=== PATIENT | female | born 1965 | race Caucasian/White ===

== ENCOUNTER 2019-12-11 08:23 | Day surgery (SDC) | payer MEDICAID, SELFPAY ==
[2019-12-09 13:08] LABS: Hematocrit 36.3 % (37-47); Hemoglobin 9.5 g/dL (12.0-15.0); Mean Corp Hgb Conc 26.2 g/dL (32-36); Mean Corpuscular Hgb 20.3 pg (27.0-32.0); Mean Corpuscular Volume 77.7 fL (81-99); POSITIVE MORPHOLOGY YES; Platelet Count 252 K/mm3 (150-450); Red Blood Count 4.67 M/mm3 (4.2-5.4); White Blood Count 5.9 K/mm3 (4.4-11.0)
[2019-12-09 13:40] LABS: Differential Comment SCANNED; Scan Indicated on CBC? Y/N YES- FLAGS NOTED
[2019-12-11] VITALS (7 sets, daily range): BP systolic 116–153; BP diastolic 71–81; PULSE 67–76; RESP 14–16; TEMP 36.6–36.7; O2SAT 98–100; BMI 43.0
--- NOTE | 2019-12-11 | IMM_PTH ---
PATIENT: LIO RAMOS LOC: [facility] [place] U#:[id number] AGE/SX: 54/F ROOM: RE12/11/[address]: Dr. Aleksandra Luke MD : 1965 BED: DIS: 12/11/2019 SPEC #: [id number] RECD: 12/12/19 12:45 STATUS: JOEL REQ #: [id number] YOANA: 12/11/19 00:[address]: Aleksandra Luke DEPT: IMMUNOHISTOCHEMISTRY RECD BY: Cindy Peralta ENTERED: 12/12/19 12:48 SP TYPE: IMMUNO OTHR DR: MD Angela Tomlinson, NICHOLAS Tissues: Endometrium, NOS Procedures: CD138 (initial) CD138 (add) PHYSICIAN & INSTITUTION [place] [id number] SPECIMEN INFORMATION: Tissue Source: Endometrial curettings Clinical Info: Menorrhagia Specimen Number: [id number] #1 & 2 CPT code: 30088, 70513 METHODOLOGY: Deparaffinized sections of prefer/formalin-fixed tissue or PAP/DQ stained slides are incubated with monoclonal/polyclonal antibodies/oligonucleotide probes. Localization is made via biotin free immunoperoxidase method. Appropriate controls are performed and reacted as expected. Results on target cell population are indicated in the following table: RESULTS: ANTIBODY / CLONE RESULT Block 1 CD138 (B-A38) positive, rare cells Block 2 CD138 (B-A38) positive, rare cells These tests were developed and their performance characteristics determined by [facility]. They may not have been cleared or approved by the U.S. Food and Drug Administration. The FDA has determined that such clearance or approval is not necessary. The above immunohistochemical/dualISH markers are ordered by Dr. Tillman and reviewed by the signing Pathologist. INTERPRETATION: Endometrial curettings: Rare plasma cells noted consistent with mild chronic endometritis. SJ:ximena 12/17/19
[2019-12-11 08:48] LABS: Mean Corp Hgb Conc 26.3 g/dL (32-36); Mean Corpuscular Hgb 20.2 pg (27.0-32.0); Mean Corpuscular Volume 76.9 fL (81-99); POSITIVE MORPHOLOGY YES; Platelet Count 287 K/mm3 (150-450); Red Blood Count 4.94 M/mm3 (4.2-5.4)
[2019-12-11 08:51] LABS: Internal QC Validated? YES +Cl - CLEAR BKGD; Pregnancy, Urine Negative Negative
[2019-12-11] MEDS: Acetaminophen 500 MG Tablet 1000 MG PO (09:02)
[2019-12-11] MEDS: Ketorolac 30 MG/ML Syringe IV (09:03)
[2019-12-11] MEDS: Lactated Ringers 1,000 ML 100 ML IV (09:27)
[2019-12-11 09:37] LABS: Scan Indicated on CBC? Y/N YES- FLAGS NOTED
[2019-12-11 09:38] LABS: Differential Comment SCANNED
--- NOTE | 2019-12-11 09:55 | EMB_PTH ---
PATIENT: LIO RAMOS LOC: [facility] [place] U#:[id number] AGE/SX: 54/F ROOM: RE12/11/[address]: Dr. Aleksandra Luke MD : 1965 BED: DIS: 12/11/2019 SPEC #: [id number] RECD: 12/11/19 13:02 STATUS: JOEL ERMELINDA #: [id number] YOANA: 12/11/19 09:[address]: Aleksandra Luke DEPT: SURGICAL PATHOLOGY RECD BY: Alex Rendon ENTERED: 12/11/19 13:26 SP TYPE: ENDOM BX/C REBECA DR: MD Angela Tomlinson, ALEJANDRO-C Tissues: Endometrium, NOS Procedures: Surgery Specimen Level IV HEADER OPERATION: Hysteroscopy, dilation and curettage, Mirena IUD insertion PRE-OP DIAGNOSIS: Menorrhagia, IUD insertion TISSUE SUBMITTED: Endometrial curettings MICROSCOPIC DIAGNOSIS Endometrium, curettings: Disordered proliferative endometrium to simple hyperplasia without atypia. Focal glandular breakdown. Mild chronic endometritis. Fragments of benign superficial squamous and endocervical tissue with chronic inflammation. AM:ximena 12/12/19 COMMENT Immunohistochemistry ([id number]) supports the above diagnosis. Case has been reviewed in consultation with Dr. Lopes who concurs with the above diagnosis. IDC:CRISTA MICROSCOPIC DESCRIPTION Slides are reviewed. GROSS DESCRIPTION Received in fixative is one container labeled with the patient's name and designated endometrial curettings. The specimen consists of multiple irregular fragments of ryan-pink to hemorrhagic soft tissue that in aggregate measure 5 x 3 x 0.3 cm. The entire specimen is submitted in two cassettes. / CRISTA:ximena 12/11/19 TC:3 CPT: 50127
--- NOTE | 2019-12-11 10:22 | PCM.DC.D&C ---
Discharge Diet: No Restrictions Discharge Activity: Return to Normal Activity, May Shower, May Take a Tub Bath - in 2 weeks. Return to work on:: 12/15/19 May shower in (days): 1 May resume sexual activity in: 2 weeks Lifting Restrictions: none Call your doctor if your incision/area has: Continuous Slow Oozing, Sudden Increased Bleeding, Foul Smelling Discharge Call your doctor if you observe: Using more than one pad per hour - for 2 hrs in a row Allergies/Adverse Reactions: Allergies Penicillins [PCN] Allergy (Verified 12/11/19 08:46) Hives Medications to take at Discharge Bupropion HCl [Wellbutrin Xl] 150 mg PO BID 12/04/19 Ferrous Sulfate 324 mg PO TID 12/04/19 Lisinopril [Prinivil] 5 mg PO DAILY 12/04/19 Ibuprofen [Motrin] 600 mg PO Q6H PRN #60 tab 12/11/19 The following prescriptions were given: Ibuprofen [Motrin] 600 mg PO Q6H PRN #60 tab PRN Reason: Pain Transmission Status: Pending to [facility] Primary Care Physician: Angela Rivera NP-C [Primary Care Provider] - Test Results: Test results from this visit will be discussed in further detail at your follow-up appointment, if applicable. Please Follow Up With: Aleksandra Luke MD - [phone] When: 6-8 weeks or prn
[2019-12-11] MEDS: Lubricating Jelly 60 GM Tube 30 GM TOPICAL (10:30)
--- NOTE | 2019-12-11 10:37 | PCM.OPRPT ---
Report of Operation Date of Procedure: 12/11/19 Pre-Operative Diagnosis: Menorrhagia, iron deficiency anemia from chronic blood loss. Post-Operative Diagnosis: Same Surgery/Procedure Performed:: Hysteroscopy, dilation and curettage with Mirena insertion Description of Surgical Findings:: Uterus sounded to 11 cm. Normal-appearing cervix and vagina. Normal-appearing endometrial cavity with normal proliferative appearing endometrium pocket grinder operator: None Type of Anesthesia:: MAC Anesthesiologist: Benita Rodriguez Special Medications: none Specimen's removed: Endometrial curettings Drains: none Estimated Blood Loss (mL): 10 Fluids Replaced: 600 Description of Procedure: The patient was taken to the OR where she was prepped and draped in dorsal lithotomy position. The weighted speculum was placed in the vagina and the anterior lip of the cervix was grasped with a single-tooth tenaculum. The cervix was dilated serially with Hegar dilators. The 5mm hysteroscope was placed into the uterine cavity and the above findings were noted. Bilateral tubal ostia were identified. The hysteroscope was removed. A gentle sharp curettage was done of the uterine cavity. The instruments were removed from the vagina. The Mirena IUD was inserted in the usual sterile fashion without difficulty and the was were trimmed to 2 cm. The specimen was handed off and sent to pathology. All sponge and needle counts were correct. Vaginal sweep was performed by me. The patient was awakened and taken to the recovery room in stable condition. Hysteroscopic ins: 200 cc normal saline Hysteroscopic outs:150 cc Findings: Endometrial cavity: Normal, no fibroids or polyps noted Cervix: Normal Vagina: Normal Grafts/Implants Used: Mirena IUD Lot [id number] - Complications none - Admit VTE Documentation VTE Present on Admission: No VTE Mechan Device Prophylaxis: SCD's VTE Pharm Prophylaxis ordered?: No Reason prophylaxis not ordered:: Procedure Not Indicated
[2019-12-11] MEDS: Ibuprofen 600 MG Tablet PO (11:38)
== END 2019-12-11 12:35 | disposition home or self-care (01) ==
LOC: SDC 08:24 → AC 08:24
PROVIDERS: Anesthesiology; PCP Nurse Practitioner Family; Referring Provider Obstetrics & Gynecology; Visit Provider Obstetrics & Gynecology
PROC: 0UDB8ZZ Extraction of Endometrium, Via Natural or Artificial Opening Endoscopic (ICD-10-PCS; CPT 58558; principal; 2019-12-11 09:45)
DX: N71.1 Chronic inflammatory disease of uterus (principal); N92.0 Excessive and frequent menstruation with regular cycle; D50.0 Iron deficiency anemia secondary to blood loss (chronic); J45.909 Unspecified asthma, uncomplicated
CPT/HCPCS: 00952; 58300; 58558; 36415; 81025; 85027; 88305; 88341; 88342; J7120